=== PATIENT | female | born 1945 | race Caucasian/White ===

== ENCOUNTER 2018-02-27 07:48 | Emergency (ER) | payer MEDICARE, MEDICAID ==
[2018-02-27] MEDS ORDERED: Albuterol-Ipratrop 3 mg / 0.5 (3 ml) UD INH STA ×2 (08:37→11:27)
[2018-02-27] MEDS ORDERED: Albuterol-Ipratrop 3 mg / 0.5 (3 ml) UD ONE (08:47)
--- NOTE | 2018-02-27 08:47 | ED PDOC ---
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 denies: Chest Pain, Bloody Cough, Heart Racing, Dizziness, Light-headedness Additional History Per: Patient Additional Complaint(s): walked into ed w/ presenting c/o of cough congestion w/ lots of whitish phlegm x5 days , fever x3 days. stated its hard to breathed at night. low grade temp. in ed. denies chest pain. Past Medical History Reviewed: Historical Data, Nursing Documentation, Vital Signs Vital Signs: Last Vital Signs Temp 98.3 F 02/27/18 11:14 Pulse 64 02/27/18 11:14 Resp 22 02/27/18 11:14 BP 139/73 02/27/18 11:14 Pulse Ox 97 02/27/18 11:14 - Medical History PMH: Bronchitis, HTN, Hypercholesterolemia Denies: HIV, Chronic Kidney Disease - Surgical History Surgical History: Cholecystectomy, Tonsillectomy - Family History Family History: States: Unknown Family Hx - Living Arrangements Living Arrangements: With Family - Social History Current smoker - smoking cessation education provided: No - Immunization History Hx Influenza Vaccination: Yes Hx Pneumococcal Vaccination: Yes - Home Medications Home Medications: Ambulatory Orders Medication Instructions Recorded Losartan [Cozaar] 50 mg PO BID 10/13/14 Metoprolol Tartrate 50 mg PO BID 10/13/14 Albuterol HFA [Ventolin HFA 90 2 puff IH [id number] PRN #0 puff 10/16/14 mcg/actuation (8 g)] Moxifloxacin [Avelox] 400 mg PO DAILY #7 tab 10/16/14 predniSONE [predniSONE Tab] 40 mg PO DAILY #5 tab 10/16/14 Omeprazole [PrilOSEC] 40 mg PO DAILY #30 ecc 11/09/14 Ondansetron [Zofran] 4 mg PO Q8H #10 tab 11/09/14 Albuterol HFA [Ventolin HFA 90 2 puff IH [id number] PRN #60 puff 02/27/18 mcg/actuation (8 g)] Azithromycin 250 mg PO DAILY 4 Days #4 tab 02/27/18 Methylprednisolone [Medrol Dose 4 mg PO DAILY #21 mg 02/27/18 Pack (21 tabs)] - Allergies Allergies/Adverse Reactions: Allergies Allergy/AdvReac Type Severity Reaction Status Date / Time No Known Allergies Allergy Verified 10/13/14 13:27 Review of Systems ROS Statement: Except As Marked, All Systems Reviewed And Found Negative Constitutional: Positive for: Fever. Negative for: Chills Cardiovascular: Negative for: Chest Pain, Palpitations Respiratory: Positive for: Cough, Shortness of Breath Gastrointestinal: Negative for: Nausea, Vomiting, Abdominal Pain Musculoskeletal: Negative for: Arm Pain Neurological: Negative for: Weakness, Numbness Physical Exam - Reviewed Nursing Documentation Reviewed: Yes Vital Signs Reviewed: Yes - Physical Exam Appears: Positive for: Uncomfortable Head Exam: Positive for: ATRAUMATIC, NORMAL INSPECTION, NORMOCEPHALIC Eye Exam: Positive for: Normal appearance, EOMI, PERRL ENT: Positive for: Pharynx Is (mmm). Negative for: Pharyngeal Erythema, Tonsillar Exudate, Tonsillar Swelling Neck: Positive for: Normal, Painless ROM, Supple Cardiovascular/Chest: Positive for: Regular Rate, Rhythm, Chest Non Tender. Negative for: Edema, Gallop, Bradycardia, Tachycardia Respiratory: Positive for: Wheezing (mild scattered). Negative for: Decreased Breath Sounds, Accessory Muscle Use, Crackles, Rales, Rhonchi, Respiratory Distress, Plerual Rub Pulses-Radial (L): 2+ Pulses-Radial (R): 2+ Gastrointestinal/Abdominal: Positive for: Normal Exam, Bowel Sounds, Soft. Negative for: Tenderness Back: Positive for: Normal Inspection. Negative for: L CVA Tenderness, R CVA Tenderness Extremity: Positive for: Normal ROM. 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 Negative for: Motor/Sensory Deficits - Laboratory Results Result Diagrams: 02/27/18 08:45 02/27/18 08:45 - ECG ECG: Positive for: Interpreted By Me ECG Rhythm: Positive for: Normal QRS, Normal ST Segment, Sinus Rhythm. Negative for: ST/T Changes O2 Sat by Pulse Oximetry: 98 Pulse Ox Interpretation: Normal - Radiology X-Ray: Interpreted by Me X-Ray Interpretation: No Acute Disease - Progress ED Course And Treament: sx markedly improved. advise antibiotics steroids and albuterol. pt agree's with plan. 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 pt agree's with plan and leaves ambulatory and in good spirits. Re-evaluation Time: 11:30 Condition: Improved Disposition - Clinical Impression Clinical Impression: Bronchitis, acute - Patient ED Disposition Is Patient to be Admitted: No Counseled Patient/Family Regarding: Studies Performed, Diagnosis, Need For Followup, Rx Given - Disposition Referrals: [facility] [Outside] (2 to 3 days) Disposition: Routine/Home Disposition Time: 11:00 Condition: GOOD Prescriptions: Albuterol HFA [Ventolin HFA 90 mcg/actuation (8 g)] 2 puff IH [id number] PRN #60 puff PRN Reason: Cough Azithromycin 250 mg PO DAILY 4 Days #4 tab Methylprednisolone [Medrol Dose Pack (21 tabs)] 4 mg PO DAILY #21 mg Instructions: Acute Bronchitis, Adult (DC) Forms: [employer] (Salvadorean)
[2018-02-27 08:59] LABS: BASO % 0.7 % (0.0-2.0); EOS # 0.1 K/uL (0.0-0.7); EOS % 2.5 % (0.0-4.0); HEMOGLOBIN 12.1 g/dL (12.0-16.0); LYMPH # 0.4 K/uL (1.0-4.3); LYMPH % 9.1 % (20.0-40.0); MEAN CORPUSCULAR HEMOGLOBIN 27.6 pg (27.0-31.0); MEAN CORPUSCULAR HGB CONC 32.4 g/dL (33.0-37.0); MEAN PLATELET VOLUME 9.2 fl (7.2-11.7); MONO # 0.6 K/uL (0.0-0.8); MONO % 13.7 % (0.0-10.0); NEUT # 3.2 K/uL (1.8-7.0); NRBC % 0.1 % (0.0-0.0); PLATELET COUNT 188 K/uL (130-400); RED CELL DISTRIBUTION WIDTH 14.6 % (11.5-14.5); WHITE BLOOD COUNT 4.3 K/uL (4.8-10.8)
[2018-02-27 09:01] LABS: INR 1.1 (0.9-1.2); PARTIAL THROMBOPLASTIN TIME 28.7 Seconds (25.6-37.1)
[2018-02-27 09:14] LABS: ALB/GLOB RATIO 1.3 (1.0-2.1); ALBUMIN 4.1 g/dL (3.5-5.0); ALT/SGPT 58 U/L (9-52); AST/SGOT 46 U/L (14-36); B-TYPE NATRIURETIC PEPTIDE 316 pg/ml (0-900); BLOOD UREA NITROGEN 14 mg/dl (7-17); CALCIUM 9.3 mg/dL (8.4-10.2); GFR AFRICAN-AMERICAN > 60; GFR NON-AFRICAN AMERICAN > 60
--- NOTE | 2018-02-27 10:39 | RAD ---
CHEST RADIOGRAPHS Two the chest been submitted in frontal and lateral projections for evaluation of cough with pressure prior chest 10/13/2014. No acute infiltrate is identified bilaterally. Inspiratory volume appears improved. Cardiac size remains enlarged but stable. No pulmonary derangement is evident. A aortic ectasis displaces trachea slightly to the right once again. No pleural effusion or pneumothorax bilaterally. IMPRESSION: Stable cardiomegaly. Improved inspiratory effort. No acute infiltrate pleural effusion or pneumothorax identified bilaterally.
[2018-02-27 10:54] LABS: EOSINOPHIL 1 % (0-7); LYMPHOCYTE 10 % (20-50); MONOCYTE 14 % (0-10); NEUTROPHIL 75 % (42-75); PLATELET ESTIMATE NORMAL (NORMAL); TOTAL CELLS COUNTED 100
[2018-02-27 11:15] VITALS: BP 139/73; PULSE 64; RESP 22; TEMP 98.3
[2018-02-27 11:32] VITALS: O2SAT 98
--- NOTE | 2018-02-28 11:49 | CARD ---
APPROVED REPORT EKG Measurement Heart [id number] ID [id number] <Conclusion> Normal sinus rhythm Nonspecific ST and T wave abnormality Abnormal ECG
== END 2018-02-27 11:45 | disposition home or self-care (01) ==
LOC: H.ER 07:48 → SUPCPDRO 07:48 → H.ER 11:45
DX: J40 Bronchitis, not specified as acute or chronic (principal); E78.00 Pure hypercholesterolemia, unspecified; I10 Essential (primary) hypertension; I77.819 Aortic ectasia, unspecified site; J44.0 Chronic obstructive pulmonary disease with (acute) lower respiratory infection